=== PATIENT | female | born 2000 | race Caucasian/White ===

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

== ENCOUNTER 2020-02-03 18:33 | Emergency (ER) | payer SELFPAY ==
[~2020-02-03] VITALS: Ht 157.4 cm; Wt 49.9 kg
[2020-02-03 19:59] LABS: BILIRUBIN Negative (Negative); BLOOD Negative (Negative); CLARITY Cloudy (Clear); COLOR Yellow (Yellow); GLUCOSE Negative (Negative); KETONE Trace (Negative); LEUKO ESTERASE Trace (Negative); NITRITE Negative (Negative); PH 5.5 (4.5-8.0); SPECIFIC GRAVITY 1.025 (1.001-1.030)
[2020-02-03 20:19] LABS: CALCIUM OXALATE CRYSTALS 2+
[2020-02-03 20:20] LABS: BACTERIA TRACE
== END 2020-02-03 20:47 | disposition home or self-care (01) ==
LOC: ED 18:33
PROVIDERS: Emergency Medicine
DX: Z34.91 Encounter for supervision of normal pregnancy, unspecified, first trimester (principal); Z3A.01 Less than 8 weeks gestation of pregnancy

== ENCOUNTER 2021-09-02 12:10 | Emergency (ER) | payer OTHER | END 2021-09-02 13:01 | disposition left against medical advice (07) | LOC: ED 12:10 | DX: Z53.21 Procedure and treatment not carried out due to patient leaving prior to being seen by health care provider (principal) ==

== ENCOUNTER 2022-02-04 17:22 | Emergency (ER) | payer OTHER ==
[~2022-02-04] VITALS: Wt 49.9 kg
[2022-02-04] MEDS ORDERED: AMOXICILLIN500 M2 PO (20:27)
== END 2022-02-04 20:28 | disposition home or self-care (01) ==
LOC: ED 17:22
DX: K02.9 Dental caries, unspecified (principal)

== ENCOUNTER 2023-06-07 21:52 | Emergency (ER) | payer OTHER ==
[~2023-06-07] VITALS: Ht 157.4 cm; Wt 54.4 kg
[~2023-06-07 21:52] MED LIST: AMOXICILLIN500 M2 PO
[2023-06-07] MEDS ORDERED: VIBRAMYCIN100 MG PO (22:14)
== END 2023-06-07 22:40 | disposition home or self-care (01) ==
LOC: ED 21:52
DX: A69.20 Lyme disease, unspecified (principal)

== ENCOUNTER 2023-07-15 21:21 | Emergency (ER) | payer OTHER ==
[~2023-07-15] VITALS: Ht 157.4 cm; Wt 55.8 kg
[~2023-07-15 21:21] MED LIST changes: +VIBRAMYCIN100 MG PO
== END 2023-07-15 22:48 | disposition home or self-care (01) ==
LOC: ED 21:21
DX: N91.2 Amenorrhea, unspecified (principal); Z79.2 Long term (current) use of antibiotics